=== PATIENT | male | born 1935 | race Caucasian/White ===

== ENCOUNTER 2017-01-27 08:32 | Observation (INO) | payer MEDICARE, BC ==
[2017-01-27] MEDS ORDERED: NORMAL SALINE 1,000 ML IV ONE (09:43)
[2017-01-27 09:52] LABS: Urine Bilirubin Negative (NEGATIVE); Urine Blood 250 /ul (NEGATIVE); Urine Ketone Negative (NEGATIVE); Urine Nitrite Negative (NEGATIVE); Urine Protein Negative (NEGATIVE); Urine Urobilinogen Normal (NORMAL); Urine pH 5.5 pH (5.0-7.0)
[2017-01-27 09:58] LABS: Hematocrit 38.4 % (42.0-52.0); Hemoglobin 13.4 gm/dL (13.5-18.0); Mean Cell Volume 97.2 fl (78-100); Mean Corpuscular Hemoglobin 33.9 pg (27-31); Mean Corpuscular Hgb Conc 34.9 g/dl (32-36); Mean Platelet Volume 9.6 fl (6.0-9.5); Neutrophil # 6.7 K/mm3 (1.3-6.0); Neutrophil % 71.4 % (42-75.0); Platelet Count 250 K/mm3 (150-450); Red Blood Count 3.95 M/mm3 (4.7-6.0); Red Cell Distribution Width 13.2 % (11.5-14.0); White Blood Count 9.4 K/mm3 (4.0-10.5)
[2017-01-27 10:00] LABS: Urine Appearance Clear; Urine Bacteria TRACE; Urine Color Yellow; Urine Sperm Few - 1+; Urine WBC TRACE /hpf (0-5)
[2017-01-27 10:07] LABS: Prothrombin Time (Patient) 25.6 Seconds (9.4-11.4)
[2017-01-27 10:08] LABS: INR 2.46 INR (0.90-1.10); Partial Thrombolplastin Time 41.5 Seconds (24-32)
[2017-01-27 10:20] LABS: Albumin * 3.4 gm/dl (3.4-5.0); Anion Gap 14.3 mmol/L (6.8-13.8); BUN/Creatinine Ratio 16.8 (9.0-21.6); Bilirubin, Total 1.4 mg/dL (0.0-1.1); Ca. Corrected For Albumin 10.6 mg/dL (8.4-10.2); Calcium * 10.4 mg/dL (7.9-10.9); Potassium 4.3 mmol/L (3.4-4.6); Total Protein 7.7 gm/dL (6.2-8.2)
[2017-01-27 10:21] LABS: Troponin I 0.065 ng/ml (0.00-0.10)
--- NOTE | 2017-01-27 10:21 | ERNOTE ---
Dizziness ER Record Date of Service: 01/27/17 Presenting Symptoms: near-fainting Time Seen by Provider: 01/27/17 09:07 Source: patient, family Exam Limitations: no limitations Immunizations: IMMUNIZATION HX Immunizations Up to Date Yes History of Influenza Vaccine Yes Hx Pneumococcal Vaccination Yes Allergies/Adverse Reactions: Allergies Allergy/AdvReac Type Severity Reaction Status Date / Time latex Allergy Verified 01/27/17 08:51 Sulfa (Sulfonamide Allergy Verified 01/27/17 08:51 Antibiotics) Home Medications: HOME MEDICATIONS Acetaminophen [Tylenol] 650 mg PO Q6H PRN 07/30/15 [Last Taken Unknown] Cholecalciferol (Vitamin D3) [Vitamin D3] 5,000 unit PO DAILY 07/30/15 [Last Taken Unknown] Menthol [Biofreeze] 1 appl TP PRN PRN 07/30/15 [Last Taken Unknown] Pravastatin Sodium [Pravachol] 20 mg PO HS 07/30/15 [Last Taken Unknown] Acetaminophen [Tylenol] 650 mg PO Q6H PRN #1 tablet 08/02/15 [Last Taken Unknown ] Metoprolol Succinate [Toprol Xl] 25 mg PO HS #100 tablet.sa 08/02/15 [Last Taken Unknown] Amox Tr/Potassium Clavulanate [Augmentin 875-125 Tablet] 875 mg PO Q12H [Last Taken Unknown] Furosemide [Lasix] 40 mg PO DAILY 01/27/17 [Last Taken Unknown] Gabapentin 300 mg PO DAILY 01/27/17 [Last Taken Unknown] Lisinopril 5 mg PO DAILY 01/27/17 [Last Taken Unknown] Warfarin Sodium [Coumadin] 1 mg PO DAILY 01/27/17 [Last Taken Unknown] - History of Present Illness Narrative: This morning, has been having episodes of near syncope when upright at home. Over the recent past, had an increase in Lasix, for possible flare in fluid overload. Recently, that has been lowered again back down to 40 mg. Also, pulmonology has stopped has amiodarone, out of concern for lung side effects, and started amoxicillen for possible lung infection. This has resulted in elevated INR and need for adjustment of coumadin. Timing and Duration: still present - significant orthostatic drop here in the ER , with attendant rise in pulse Noted on awakening:: Yes Severity: max: moderate Severity: currently: moderate Associated Symptoms: Present: light headedness Sense of movement: Present: none Fainted/near fainted while:: Present: standing Decreased ability to stand/walk:: Present: difficult Usually:: Present: walks w/o assistance Modifying Factors - (Improves): Reports: other - lieing down Modifying Factors - (Worsens): Reports: standing position Prior Treament: Reports: recently seen, treated by physician, currently on antibiotics Review of Systems - Review of Systems Constitutional: Present: See HPI EYE: Present: no symptoms reported ENT: Present: no symptoms reported Respiratory: Present: other - hurts to take deep breaths. Cardiology: Present: See HPI Gastrointestinal/Abdominal: Present: no symptoms reported Genitourinary: Present: no symptoms reported Musculoskeletal: Present: no symptoms reported Skin: Present: no symptoms reported Neurological: Present: no symptoms reported Endocrine: Present: no symptoms reported Hematologic/Lymphatic: Present: no symptoms reported Psych: Present: no symptoms reported All Other Systems: All systems neg except as marked - Patient's Past Medical History Patient History - Medical: No pertinent hx Patient History - Cardiac/Respiratory: Atrial Fibrillation, Hypertension, Hyperlipidemia, TIA Patient History - Cancer: No Hx of Cancer Patient History - Surgical Procedures: Other Patient History - Other: None - Family History Father Family History - Medical: Family History - Cardiac/Respiratory: Myocardial Infarction Mother Family History - Medical: - Social History Living Situations: home Psych History: No pertinent hx Smoking Status: Never smoker Alcohol Use: occasionally Drug Use: none - Immunizations Immunizations Up to Date: Yes Hx Pneumococcal Vaccination: Yes History of Influenza Vaccine: Yes Physical Exam - Physical Exam General Appearance: Present: wd/wn, alert, no apparent distress Head Exam: Present: normal inspection, no evidence of injury Eye Exam: Normal inspection: bilateral, PERRL: bilateral, EOMI: bilateral Ears, Nose, Throat: Present: normal ENT inspection Neck: Present: normal inspection, nontender Respiratory: Present: no respiratory distress, normal breath sounds Cardiovascular/Chest: Present: regular rate, rhythm, no murmur Gastrointestinal/Abdominal: Present: normal bowel sounds, nontender, nondistended, soft, no organomegaly Back Exam: Present: normal inspection Extremity Exam: Present: normal inspection, no edema Neurological Exam: Present: alert, oriented, normal mood/affect, no motor/ sensory deficits Skin Exam: Present: normal color, warm/dry Lymphatic Exam: Present: no adenopathy ED Progress - Results and Orders Patient's Lab Results:: I have reviewed the patient's lab results. - Vital Signs Patient's Vital Signs:: I have reviewed the patient's vital signs. Vital Signs: Vital Signs 01/27/17 01/27/17 08:36 09:12 Temperature 36.5 C Pulse Rate 68 104 H Respiratory 16 Rate Blood Pressure 142/59 O2 Sat by Pulse 95 Oximetry - EKG EKG: NSR EKG read: Interp. by me - first degree AV block, old mi, non specific t wave abnormality. - Progress/Reassessment Chief Complaint: Dizziness Progress:: Improved Progress Note-Subjective: 01/27/17 14:40 The patient has improved, but is still light headed and anxious when up. Orthostatics are also improved. I've spoken with Dr. Marie who agrees to accept him as an observation med surg admission. Departure Clinical Impression: Atrial fibrillation with RVR, Orthostatic hypotension - Departure Disposition: [facility]
[2017-01-27] MEDS ORDERED: NORMAL SALINE 500 ML IV ONE (12:45)
[2017-01-27] MEDS ORDERED: (Menthol [Biofreeze] 1 APPL) TP PRN (14:43)
[2017-01-27] MEDS ORDERED: ACETAMINOPHEN 325 MG TABLET PO PRN (14:43)
[2017-01-27] MEDS ORDERED: AMOX TR/POTASSIUM CLAVULANATE 875 MG TABLET PO SCH (14:45)
--- NOTE | 2017-01-27 15:06 | HP ---
Chief Complaint - Chief Complaint Date of Service: 01/27/17 Time of Service: 14:52 Chief Complaint: Near Syncope History of Present Illness: This 81 year old man normally sees Dr. Hall. Today, he has been having episodes of near syncope when upright at home. Over the recent past, he had an increase in Lasix, for a possible flare in fluid overload. Also recently, the lasix subsequently has been lowered again back down to 40 mg, because apparently fluid overload was not actually the issue. Also, pulmonology has stopped has amiodarone, out of concern for lung side effects, and started amoxicillen for possible lung infection. This has resulted in elevated INR and need for adjustment of coumadin. We have now given him several gentle IV fluid boluses and he feels better, his orthostatic changes have improved, but he is still light headed and remains concerned. For this reason, we have decided to admit him overnight for additional IV fluids and monitoring. - Patient's Past Medical History Patient History - Medical: No pertinent hx Patient History - Cardiac/Respiratory: Atrial Fibrillation, Hypertension, Hyperlipidemia, TIA Patient History - Cancer: No Hx of Cancer Patient History - Surgical Procedures: Other Patient History - Other: None - Family History Father Family History - Medical: Family History - Cardiac/Respiratory: Myocardial Infarction Mother Family History - Medical: - Social History Living Situations: home Psych History: No pertinent hx Smoking Status: Never smoker Alcohol Use: occasionally Drug Use: none - Immunizations Immunizations Up to Date: Yes Hx Pneumococcal Vaccination: Yes History of Influenza Vaccine: Yes Review Of Systems (GEN) - Review of Systems Generalized/Overall Review: Present: Weakness, Malaise EENTM: Present: No Symptoms Reported Respiratory: Present: No Symptoms Reported Cardiac: Present: Chest Pain - with deep breathing Abdominal: Present: No Symptoms Reported Genitourinary: Present: No Symptoms Reported Musculoskeletal: Present: No Symptoms Reported Neurological: Present: Anxiety, Weakness Skin: Present: No Symptoms Reported Endocrine: Present: No Symptoms Reported Misc: All systems neg except as marked Immunizations: IMMUNIZATION HX Immunizations Up to Date Yes History of Influenza Vaccine Yes Hx Pneumococcal Vaccination Yes Allergies/Adverse Reactions: Allergies Allergy/AdvReac Type Severity Reaction Status Date / Time latex Allergy Verified 01/27/17 08:51 Sulfa (Sulfonamide Allergy Verified 01/27/17 08:51 Antibiotics) Home Medications: HOME MEDICATIONS Acetaminophen [Tylenol] 650 mg PO Q6H PRN 07/30/15 [Last Taken Unknown] Cholecalciferol (Vitamin D3) [Vitamin D3] 5,000 unit PO DAILY 07/30/15 [Last Taken Unknown] Menthol [Biofreeze] 1 appl TP PRN PRN 07/30/15 [Last Taken Unknown] Pravastatin Sodium [Pravachol] 20 mg PO HS 07/30/15 [Last Taken Unknown] Acetaminophen [Tylenol] 650 mg PO Q6H PRN #1 tablet 08/02/15 [Last Taken Unknown ] Metoprolol Succinate [Toprol Xl] 25 mg PO HS #100 tablet.sa 08/02/15 [Last Taken Unknown] Amox Tr/Potassium Clavulanate [Augmentin 875-125 Tablet] 875 mg PO Q12H [Last Taken Unknown] Furosemide [Lasix] 40 mg PO DAILY 01/27/17 [Last Taken Unknown] Gabapentin 300 mg PO DAILY 01/27/17 [Last Taken Unknown] Lisinopril 5 mg PO DAILY 01/27/17 [Last Taken Unknown] Warfarin Sodium [Coumadin] 1 mg PO DAILY 01/27/17 [Last Taken Unknown] Exam - Exam Vital Signs: Vital Signs - Last Taken Temp 36.5 C 01/27/17 08:36 Pulse 76 01/27/17 14:16 Resp 17 01/27/17 14:16 BP 116/53 01/27/17 14:16 Pulse Ox 95 01/27/17 14:16 Constitutional: Present: Alert, Oriented x3, Cooperative, Well developed, Well nourished, No distress, Elderly ENT Exam: Present: normal ENT inspection, hearing grossly normal, pharynx normal Eye Exam: bilateral eye: normal inspection, PERRL, EOMI Neck: Present: normal inspection Back Exam: Present: normal inspection Respiratory: Present: lungs clear, no respiratory distress Cardiovascular/Chest: Present: no chest tenderness, no edema, no murmur, irregularly irregular. Absent: JVD Abdomen: Present: Normal bowel sounds, soft, nontender, nondistended, no rebound tenderness, no hepatospenomegaly Extremity: Present: normal inspection, no pedal edema Skin Exam: Present: normal color, warm/dry, no cyanosis Neurologic: Present: alert, oriented x 3 Appearance: Present: appropriate appearance, appropriate insight, neat, no memory impairment Eye contact: Present: cooperative, good eye contact, normal speech Thoughts: Present: normal thought pattern Diagnostic Studies: Laboratory Results WBC 9.4 K/mm3 (4.0-10.5) 01/27/17 09:50 RBC 3.95 M/mm3 (4.7-6.0) L 01/27/17 09:50 Hgb 13.4 gm/dL (13.5-18.0) L 01/27/17 09:50 Hct 38.4 % (42.0-52.0) L 01/27/17 09:50 MCV 97.2 fl (78-100) 01/27/17 09:50 MCH 33.9 pg (27-31) H 01/27/17 09:50 MCHC 34.9 g/dl (32-36) 01/27/17 09:50 RDW 13.2 % (11.5-14.0) 01/27/17 09:50 Plt Count 250 K/mm3 (150-450) 01/27/17 09:50 MPV 9.6 fl (6.0-9.5) H 01/27/17 09:50 Immature Gran % (Auto) 0.80 % (0.001-0.429) H 01/27/17 09:50 Immature Gran # (Auto) 0.08 K/mm3 (0.000-0.0310) H 01/27/17 09:50 Neutrophils % 71.4 % (42-75.0) 01/27/17 09:50 Lymphocytes % 14.1 % (20-51) L 01/27/17 09:50 Monocytes % 9.3 % (0.0-9) H 01/27/17 09:50 Eosinophils % 3.1 % (0.0-3.0) H 01/27/17 09:50 Basophils % 1.3 % (0.0-1.0) H 01/27/17 09:50 Nucleated RBC % 0.0 k/mm3 (0-1) 01/27/17 09:50 Neutrophils # 6.7 K/mm3 (1.3-6.0) H 01/27/17 09:50 Lymphocytes # 1.3 k/mm3 (1.5-3.5) L 01/27/17 09:50 Monocytes # 0.9 k/mm3 (0.0-1.0) 01/27/17 09:50 Eosinophils # 0.3 k/mm3 (0.0-0.7) 01/27/17 09:50 Absolute Basophils 0.1 k/mm3 (0.0-0.1) 01/27/17 09:50 PT 25.6 Seconds (9.4-11.4) H 01/27/17 09:50 INR (Anticoag Therapy) 2.46 INR (0.90-1.10) H 01/27/17 09:50 PTT ([place]) 41.5 Seconds (24-32) H 01/27/17 09:50 Sodium 134 mmol/L (132-142) 01/27/17 09:50 Plasma Sodium 134 mmol/L (130-142) 01/27/17 09:50 Potassium 4.3 mmol/L (3.4-4.6) 01/27/17 09:50 Chloride 98 mmol/L (97-106) 01/27/17 09:50 Carbon Dioxide 26.0 mmol/L (24-32.6) 01/27/17 09:50 Anion Gap 14.3 mmol/L (6.8-13.8) H 01/27/17 09:50 BUN 18 mg/dL (6-23) 01/27/17 09:50 Creatinine 1.07 mg/dL (0.4-1.4) 01/27/17 09:50 Est GFR (Non-Af Amer) 70 mL/min (60-130) D 01/27/17 09:50 BUN/Creatinine Ratio 16.8 (9.0-21.6) 01/27/17 09:50 Random Glucose 107 mg/dL (70-110) 01/27/17 09:50 Calcium 10.4 mg/dL (7.9-10.9) 01/27/17 09:50 Calcium Adj for Albumin 10.6 mg/dL (8.4-10.2) H 01/27/17 09:50 Total Bilirubin 1.4 mg/dL (0.0-1.1) H 01/27/17 09:50 AST 35 U/L (0-48) 01/27/17 09:50 ALT 41 U/L (19-67) 01/27/17 09:50 Alkaline Phosphatase 67 U/L (50-170) 01/27/17 09:50 Troponin I 0.065 ng/ml (0.00-0.10) 01/27/17 09:50 B-Natriuretic Peptide 1775 pg/mL (5-650) H 01/27/17 09:50 Total Protein 7.7 gm/dL (6.2-8.2) 01/27/17 09:50 Albumin 3.4 gm/dl (3.4-5.0) 01/27/17 09:50 Urine Color Yellow 01/27/17 09:43 Urine Appearance Clear 01/27/17 09:43 Urine pH 5.5 pH (5.0-7.0) 01/27/17 09:43 Ur Specific [place] 1.010 SP.GR. (1.005-1.030) 01/27/17 09:43 Urine Protein Negative mg/dL (NEGATIVE) 01/27/17 09:43 Urine Glucose (UA) Negative mg/dL (NEGATIVE) 01/27/17 09:43 Urine Ketones Negative mg/dL (NEGATIVE) 01/27/17 09:43 Urine Blood 250 /ul (NEGATIVE) H 01/27/17 09:43 Urine Nitrate Negative (NEGATIVE) 01/27/17 09:43 Urine Bilirubin Negative mg/dl (NEGATIVE) 01/27/17 09:43 Urine Urobilinogen Normal EU/dl (NORMAL) 01/27/17 09:43 Ur Leukocyte Esterase Negative /ul (NEGATIVE) 01/27/17 09:43 Urine RBC 10-25 /hpf (0-5) H 01/27/17 09:43 Urine WBC Trace /hpf (0-5) 01/27/17 09:43 Ur Epithelial Cells Trace /hpf (0-5) 01/27/17 09:43 Urine Bacteria Trace (NONE) 01/27/17 09:43 Urine Sperm Few - 1+ (NONE) H 01/27/17 09:43 Urine Culture Comments No culture indicated 01/27/17 09:43 Assessment/Plan - Narrative Narrative: Continued rehydration. Hold Lasix. Ambulation with help. Labs in AM. Probably home tomorrow. - Assessment/Plan (1) Orthostatic hypotension Problem: Acute (2) Cardiomyopathy, nonischemic Problem: Chronic (3) Hypertension Problem: Chronic Qualifiers: Hypertension type: essential hypertension Qualified Code(s): I10 - Essential (primary) hypertension (4) Hypolipidemia Problem: Chronic
[2017-01-27] MEDS: POTASSIUM CHLORIDE 20 MEQ in NORMAL SALINE 1,000 ML IV SCH (16:28)
[2017-01-27] MEDS ORDERED: METOPROLOL SUCCINATE 25 MG TABLET.SA PO SCH (21:00)
[2017-01-27] MEDS: SIMVASTATIN 10 MG TABLET PO SCH (21:15)
[2017-01-27] MEDS: AMOX TR/POTASSIUM CLAVULANATE 875 MG TABLET PO SCH (21:15)
[2017-01-27] MEDS: GABAPENTIN 300 MG CAPSULE PO SCH (21:35)
[2017-01-27] MEDS: LORATADINE 10 MG TABLET PO SCH (21:35)
[2017-01-28] MEDS: LISINOPRIL 5 MG TABLET PO SCH ×2 (06:04→09:03)
[2017-01-28 06:18] LABS: Hemoglobin 11.9 gm/dL (13.5-18.0); Mean Cell Volume 102.3 fl (78-100); Mean Corpuscular Hemoglobin 33.8 pg (27-31); Mean Corpuscular Hgb Conc 33.1 g/dl (32-36); Neutrophil # 4.7 K/mm3 (1.3-6.0); Neutrophil % 67.7 % (42-75.0); Platelet Count 199 K/mm3 (150-450); Red Blood Count 3.52 M/mm3 (4.7-6.0); Red Cell Distribution Width 13.5 % (11.5-14.0); White Blood Count 6.9 K/mm3 (4.0-10.5)
[2017-01-28 06:22] LABS: BUN/Creatinine Ratio 15.5 (9.0-21.6); Calcium * 9.5 mg/dL (7.9-10.9); Carbon Dioxide 27.5 mmol/L (24-32.6); Estimated Creat Clear 60.6; Potassium 4.5 mmol/L (3.4-4.6)
[2017-01-28 06:24] LABS: INR 2.02 INR (0.90-1.10)
[2017-01-28] MEDS: AMOX TR/POTASSIUM CLAVULANATE 875 MG TABLET PO SCH ×2 (08:56→20:59)
[2017-01-28] MEDS: CHOLECALCIFEROL 5,000 UNIT TABLET PO SCH (08:56)
[2017-01-28] MEDS ORDERED: LISINOPRIL 5 MG TABLET PO SCH (09:00)
[2017-01-28] MEDS ORDERED: GABAPENTIN 300 MG CAPSULE PO SCH (09:00)
[2017-01-28] MEDS ORDERED: GABAPENTIN 100 MG CAPSULE PO SCH (09:00)
--- NOTE | 2017-01-28 09:23 | PN ---
Subjective - Date and Time Seen Date: 01/28/17 Time: 09:20 Subjective Narrative: Still light headed in spite of our adjustments. Wonders about labs. Concerned that we have adjusted his meds. Better than yesterday. Ok when sitting. Objective - Review of Systems Generalized/Overall Review: Reports: No Symptoms Reported EENTM: Reports: No Symptoms Reported Respiratory: Reports: No Symptoms Reported Cardiac: Reports: Other - HPI Abdominal: Reports: No Symptoms Reported Genitourinary Symptoms: Reports: No Symptoms Reported Musculoskeletal Complaints: Reports: No Symptoms Reported Neurological: Reports: No Symptoms Reported Skin: Reports: No Symptoms Reported Endocrine: Reports: No Symptoms Reported Misc: All systems neg except as marked - Vitals Vitals: Last Vital Signs Temp 36.3 C L 01/28/17 06:37 Pulse 72 01/28/17 09:03 Resp 18 01/28/17 06:37 BP 104/47 01/28/17 09:03 Pulse Ox 92 01/28/17 06:37 - Abnormal Lab Findings Abnormal Lab Findings: Abnormal Lab Results 01/28/17 01/28/17 Range/Units 06:00 06:00 RBC 3.52 L (4.7-6.0) M/mm3 Hgb 11.9 L (13.5-18.0) gm/dL Hct 36.0 L (42.0-52.0) % MCV 102.3 H (78-100) fl MCH 33.8 H (27-31) pg MPV 10.0 H (6.0-9.5) fl Immature Gran % (Auto) 0.90 H (0.001-0.429) % Immature Gran # (Auto) 0.06 H (0.000-0.0310) K/mm3 Lymphocytes % 14.2 L (20-51) % Monocytes % 10.3 H (0.0-9) % Eosinophils % 5.7 H (0.0-3.0) % Basophils % 1.2 H (0.0-1.0) % Lymphocytes # 1.0 L (1.5-3.5) k/mm3 PT 21.0 H (9.4-11.4) Seconds INR (Anticoag Therapy) 2.02 H (0.90-1.10) INR - Exam Constitutional: Present: Alert, Oriented x3, Cooperative, Well developed, Well nourished, No distress ENT Exam: Present: normal ENT inspection, hearing grossly normal Neck: Present: normal inspection Respiratory: Present: normal breath sounds, no respiratory distress Cardiovascular/Chest: Present: regular rate, rhythm, no chest tenderness Abdomen: Present: Normal bowel sounds, soft, nontender, nondistended, no rebound tenderness, no hepatospenomegaly, no masses Extremity: Present: normal inspection, no pedal edema Skin Exam: Present: normal color, warm/dry, no cyanosis Neurologic: Present: alert, oriented x 3, other - anxious Appearance: Present: appropriate appearance, no memory impairment, impaired insight - ? Thoughts: Present: normal thought pattern Assessment/Plan Plan Narrative: Adjust meds. Ambulate lots. Labs tomorrow. Home tomorrow. - Problems/Diagnosis (1) Orthostatic hypotension Problem: Acute (2) Cardiomyopathy, nonischemic Problem: Chronic (3) Hypertension Problem: Chronic Qualifiers: Hypertension type: essential hypertension Qualified Code(s): I10 - Essential (primary) hypertension (4) Hypolipidemia Problem: Chronic
[2017-01-28] MEDS: POTASSIUM CHLORIDE 20 MEQ in NORMAL SALINE 1,000 ML IV SCH (11:57)
[2017-01-28] MEDS ORDERED: WARFARIN SODIUM 1 MG TABLET PO SCH (17:00)
[2017-01-28] MEDS ORDERED: WARFARIN SODIUM 2 MG TABLET PO SCH (17:00)
[2017-01-28] MEDS: LORazepam 0.5 MG TABLET PO SCH ×2 (17:26→20:59)
[2017-01-28] MEDS: GABAPENTIN 300 MG CAPSULE PO SCH (20:59)
[2017-01-28] MEDS: SIMVASTATIN 10 MG TABLET PO SCH (20:59)
[2017-01-28] MEDS: LORATADINE 10 MG TABLET PO SCH (20:59)
[2017-01-28] MEDS ORDERED: METOPROLOL SUCCINATE 25 MG TABLET.SA PO SCH (21:00)
[2017-01-29 05:28] LABS: Hematocrit 34.5 % (42.0-52.0); Hemoglobin 11.5 gm/dL (13.5-18.0); Mean Cell Volume 99.7 fl (78-100); Mean Corpuscular Hemoglobin 33.2 pg (27-31); Mean Corpuscular Hgb Conc 33.3 g/dl (32-36); Mean Platelet Volume 10.3 fl (6.0-9.5); Neutrophil # 5.1 K/mm3 (1.3-6.0); Neutrophil % 67.4 % (42-75.0); Platelet Count 215 K/mm3 (150-450); Red Blood Count 3.46 M/mm3 (4.7-6.0); Red Cell Distribution Width 13.6 % (11.5-14.0); White Blood Count 7.6 K/mm3 (4.0-10.5)
[2017-01-29 05:37] LABS: Anion Gap 9.7 mmol/L (6.8-13.8); BUN/Creatinine Ratio 11.5 (9.0-21.6); Calcium * 9.3 mg/dL (7.9-10.9); Carbon Dioxide 27.5 mmol/L (24-32.6); Estimated Creat Clear 61.3; Potassium 4.2 mmol/L (3.4-4.6)
[2017-01-29 05:53] LABS: Prothrombin Time (Patient) 17.2 Seconds (9.4-11.4)
[2017-01-29 06:08] LABS: INR 1.65 INR (0.90-1.10)
[2017-01-29 07:02] VITALS: BP 109/56
[2017-01-29] MEDS: LORazepam 0.5 MG TABLET PO SCH (08:38)
[2017-01-29] MEDS: CHOLECALCIFEROL 5,000 UNIT TABLET PO SCH (08:38)
[2017-01-29] MEDS: AMOX TR/POTASSIUM CLAVULANATE 875 MG TABLET PO SCH (08:38)
[2017-01-29] MEDS ORDERED: GABAPENTIN 100 MG CAPSULE PO SCH (09:00)
--- NOTE | 2017-01-30 11:48 | DS ---
(1) Orthostatic hypotension Problem: Acute (2) Cardiomyopathy, nonischemic Problem: Chronic (3) Hypertension Problem: Chronic Qualifiers: Hypertension type: essential hypertension Qualified Code(s): I10 - Essential (primary) hypertension (4) Hypolipidemia Problem: Chronic Description of Stay: Gradually improved with rehydration and medication adjustment. Coumadin also adjusted. Procedures Performed: none Discharge Disposition: Home self care Disposition: Home self-care Condition: Good Discharge Activity: Activity as tolerated Discharge Diet: Low salt Referrals: Ayde Hall MD [Primary Care Provider] - Problem Oriented Discharge Instructions to Patient/Family: Near-Syncope, Easy- to-Read Additional Patient Instructions (free text): Please fax records from this hospital stay to Dr Warner (cardiology) and Dr Hooker (Pulmonology) at discharge. Followup with Dr. Hall this week. 02/02 at 2:45 Extra protime (INR) on Sunday. You may drive. You may mow the lawn when it is cool. You may walk 5 minutes daily when it is cool or walk on your treadmill 5 minutes daily, but take it easy, and rest, if you need to. Prescriptions (Any new or edited meds): Lisinopril 0.5 tab PO DAILY #15 tablet Warfarin Sodium [Coumadin] 3 mg PO DAILY #30 tablet Complete Home Medications List: Complete Home Medication List: Acetaminophen [Tylenol] 650 mg PO Q6H PRN 07/30/15 Cholecalciferol (Vitamin D3) [Vitamin D3] 5,000 unit PO DAILY@1200 07/30/15 Menthol [Biofreeze] 1 appl TP PRN PRN 07/30/15 Pravastatin Sodium [Pravachol] 20 mg PO HS 07/30/15 Amox Tr/Potassium Clavulanate [Augmentin 875-125 Tablet] 875 mg PO Q12H Furosemide [Lasix] 40 mg PO DAILY@1200 01/27/17 Gabapentin 100 mg PO QAM 01/27/17 Gabapentin 300 mg PO HS 01/27/17 Metoprolol Succinate [Toprol Xl] 12.5 mg PO HS 01/27/17 Acetaminophen [Tylenol] 650 mg PO QID PRN #0 tablet 01/29/17 Cetirizine HCl [Zyrtec] 10 mg PO HS 01/29/17 Lisinopril 0.5 tab PO DAILY #15 tablet 01/29/17 Loratadine [Claritin] 10 mg PO DAILY@2100 tablet 01/29/17 Warfarin Sodium [Coumadin] 2 mg PO DAILY@1700 01/29/17 Warfarin Sodium [Coumadin] 3 mg PO DAILY #30 tablet 01/29/17
== END 2017-01-29 12:00 | disposition home or self-care (01) ==
LOC: ER 08:32 → MS 14:35
PROVIDERS: ADMIT Family Medicine; ATTEND Family Medicine
DX: I95.1 Orthostatic hypotension (principal); I48.2 Chronic atrial fibrillation; E78.6 Lipoprotein deficiency; I10 Essential (primary) hypertension; Z79.01 Long term (current) use of anticoagulants
CPT/HCPCS: 36415; 80048; 80053; 81001; 83880; 84484; 85025; 85610; 85730; 93005; 99285; G0378

== ENCOUNTER 2018-03-23 18:19 | Observation (INO) | payer BC, MEDICARE ==
[2018-03-23] MEDS ORDERED: NORMAL SALINE 1,000 ML IV ONE (18:31)
[2018-03-23] MEDS ORDERED: ACETAMINOPHEN 500 MG TABLET PO ONE (18:36)
[2018-03-23 18:58] LABS: Hematocrit 40.1 % (42.0-52.0); Hemoglobin 13.3 gm/dL (13.5-18.0); Mean Cell Volume 108.7 fl (78-100); Mean Corpuscular Hgb Conc 33.2 g/dl (32-36); Mean Platelet Volume 10.3 fl (8-11.3); Neutrophil # 13.1 K/mm3 (1.3-6.0); Neutrophil % 86.7 % (42-75.0); Platelet Count 135 K/mm3 (150-450); Red Blood Count 3.69 M/mm3 (4.7-6.0); Red Cell Distribution Width 15.6 % (11.5-14.0); White Blood Count 15.2 K/mm3 (4.0-10.5)
--- NOTE | 2018-03-23 19:18 | ERNOTE ---
Neuro HPI ER Record Date of Service: 03/23/18 Presenting Symptoms: weakness Time Seen by Provider: 03/23/18 18:27 Source: patient, family Exam Limitations: dementia Immunizations: IMMUNIZATION HX Immunizations Up to Date Yes History of Influenza Vaccine Yes Hx Pneumococcal Vaccination No Allergies/Adverse Reactions: Allergies Allergy/AdvReac Type Severity Reaction Status Date / Time Sulfa (Sulfonamide Allergy Intermediate rash Verified 03/23/18 18:25 Antibiotics) latex Allergy Mild rash Verified 03/23/18 18:25 Penicillins AdvReac Intermediate Skin Verified 03/23/18 18:25 rashes/Hives levofloxacin [From Levaquin] AdvReac Unknown Verified 03/23/18 18:25 Home Medications: HOME MEDICATIONS Cholecalciferol (Vitamin D3) [Vitamin D3] 5,000 unit PO DAILY@1200 07/30/15 [ Last Taken 03/23/18] Gabapentin 100 mg PO QAM 01/27/17 [Last Taken 03/23/18] Gabapentin 300 mg PO HS 01/27/17 [Last Taken 03/22/18] Cetirizine HCl [Zyrtec] 10 mg PO HS 01/29/17 [Last Taken 03/22/18] Bisoprolol Fumarate 10 mg PO DAILY 07/11/17 [Last Taken 03/23/18] Sacubitril/Valsartan [Entresto 24 mg-26 mg Tablet] 1 ea PO BID 07/12/17 [Last Taken 03/23/18] furosemide 40 mg tablet 40 mg PO DAILY tab 03/01/18 [Last Taken 03/23/18] warfarin 1 mg tablet 2 mg PO SUTUWETHSA 03/01/18 [Last Taken 03/21/18] warfarin 3 mg tablet 3 mg PO MOFR tab 03/01/18 [Last Taken 03/22/18] pravastatin 20 mg tablet 20 mg PO HS #30 tab 03/13/18 [Last Taken 03/22/18] Cholecalciferol (Vitamin D3) [Vitamin D3] 5,000 unit PO DAILY 03/23/18 [Last Taken 03/23/18] - History of Present Illness Narrative: [facility] this [facility] and became confused,noted on arrival to have fever Onset: sudden onset, cannot confirm onset Severity: moderate - Character of Deficits New weakness: Present: general (diffuse) Additional Deficits: Present: decrease ability to stand, decrease ability to walk, off balance Baseline Cognition: Present: alert but disoriented to time Baseline Gait: Present: walks w/o assistance Associated Symptoms: Reports: fever/chills, altered mental status, disoriented, trouble concentrating Review of Systems - Narrative Narrative: patient family report patient to have alterred mental status - Review of Systems Constitutional: Present: See HPI, weakness, fatigue, malaise EYE: Present: no symptoms reported ENT: Present: no symptoms reported Respiratory: Present: no symptoms reported Cardiology: Present: no symptoms reported Gastrointestinal/Abdominal: Present: no symptoms reported Genitourinary: Present: no symptoms reported Musculoskeletal: Present: no symptoms reported Skin: Present: no symptoms reported Neurological: Present: weakness Endocrine: Present: no symptoms reported Hematologic/Lymphatic: Present: no symptoms reported Psych: Present: no symptoms reported All Other Systems: All systems neg except as marked Medical History (Last Reviewed 03/23/18 @ 18:25 by Roxann Marley RN) Prostate enlargement (Acute) Onset Date: Unknown Prostate cancer (Acute) Onset Date: 08/2017 Mild cognitive impairment (Acute) Onset Date: Unknown Microscopic hematuria (Acute) Onset Date: Unknown ILD (interstitial lung disease) (Acute) Onset Date: Unknown Hyperlipidemia (Acute) Onset Date: Unknown Hearing loss (Acute) Onset Date: Unknown Elevated PSA (Acute) Onset Date: Unknown DVT (deep venous thrombosis) (Acute) Onset Date: Unknown CVA (cerebral vascular accident) (Acute) Onset Date: Unknown CAD (coronary artery disease) (Acute) Onset Date: Unknown CHF (congestive heart failure) (Acute) Onset Date: Unknown Atrial fibrillation (Acute) Onset Date: 2007 Cardiomyopathy (Acute) Onset Date: Unknown Atrial fibrillation with RVR (Acute) Onset Date: Unknown Cardiomyopathy, nonischemic (Chronic) Onset Date: Unknown Hypotension (Acute) Onset Date: Unknown Hypertension (Chronic) Onset Date: ~1999 Hypolipidemia (Chronic) Onset Date: Unknown Headache around the eyes (Acute) Onset Date: Unknown Orthostatic hypotension (Acute) Onset Date: Unknown Abrasion (Acute) Onset Date: Unknown Arthritis Onset Date: Unknown Dementia Onset Date: Unknown Surgical History: Surgical History (Last Reviewed 03/23/18 @ 18:25 by Roxann Marley RN) H/O abdominal surgery (Acute) Onset Date: 1968 Encounter for removal of skin lesion (Acute) Onset Date: 02/15/16 flexible cystoscopy in adult (Acute) Onset Date: Unknown Echocardiogram abnormal (Acute) Onset Date: 06/2015 Abnormal colonoscopy (Chronic) Onset Date: 07/25/07 History of bone marrow biopsy (Resolved) Onset Date: 06/2015 History of aortic valve replacement (Acute) Onset Date: 02/01/17 abdominal exploration for trauma (Acute) Onset Date: ~1968 H/O cardiac catheterization Onset Date: ~06/2015 History of appendectomy Onset Date: Unknown History of cholecystectomy Onset Date: Unknown History of tonsillectomy Onset Date: Unknown Hx of cataract surgery Onset Date: Unknown Family History: Family History (Last Reviewed 03/23/18 @ 22:49 by Jairo Watkins RN) Brother Pancreatic cancer Daughter Diabetes Father Myocardial infarction Mother MVA (motor vehicle accident) Sister Breast cancer Son H/O testicular cancer Social History: Preferred Language Vietnamese Do you have any nondenominational or No cultural preference? Smoking Status Never smoker Psych History No pertinent hx Alcohol Use none Drug Use none Physical Exam - Physical Exam General Appearance: Present: mild distress, lethargic Head Exam: Present: normal inspection, no evidence of injury Eye Exam: Normal inspection: bilateral, PERRL: bilateral, EOMI: bilateral Ears, Nose, Throat: Present: normal ENT inspection, normal pharynx Neck: Present: normal inspection, nontender Respiratory: Present: no respiratory distress, normal breath sounds, no accessory muscle use, chest nontender, lungs clear Cardiovascular/Chest: Present: irregularly irregular, systolic murmur Peripheral Pulses: N=norm/S=strong/W=weak/B=bound/A=absent: Carotid (R): Normal , Carotid (L): Normal, Radial (R): Normal, Radial (L): Normal Gastrointestinal/Abdominal: Present: normal bowel sounds, nontender, nondistended, soft, no organomegaly Back Exam: Present: normal inspection, normal range of motion, no CVA tenderness , no vertebral tenderness Extremity Exam: Present: normal inspection, non-tender, normal range of motion, no edema Neurological Exam: Present: alert, oriented, normal mood/affect, no motor/ sensory deficits, disoriented to person, disoriented to time Skin Exam: Present: normal color, warm/dry Lymphatic Exam: Present: no adenopathy Dodson Coma Scale - Assess Eye Opening: Spontaneous Motor: Obeys Commands Verbal: Confused - Total Coma Scale Total: 14 ED Progress - Date and Time Seen: Date and Time: 03/24/18 08:[address] Enriquez - Results and Orders Patient's Lab Results:: I have reviewed the patient's lab results. - Vital Signs Patient's Vital Signs:: I have reviewed the patient's vital signs. Vital Signs: Vital Signs 03/23/18 18:19 03/23/18 18:25 03/23/18 18:28 Temperature 38.2 C H Pulse Rate 88 107 H 101 H Respiratory Rate 25 H 23 H Blood Pressure 80/49 L O2 Sat by Pulse Oximetry 98 96 - EKG EKG: atrial fibrillation EKG read: Interp. by me - X-Ray X-Ray #1 X-Ray: chest Interpretation: Interp. by ga - no acute process - Progress/Reassessment Chief Complaint: Altered Mental Status Progress:: Improved - Transfer of Care Physician Sign Out: Gerald Gagnon Receiving Physician: Adan Enriquez Expected Disposition: Admit Plan - Plan Plan: to be admitted Departure Clinical Impression: Altered mental status - Departure Disposition: Still a patient Condition: Fair
[2018-03-23 19:20] LABS: Prothrombin Time (Patient) 19.2 Seconds (9.0-11.0)
[2018-03-23 19:21] LABS: Albumin * 3.4 gm/dl (3.4-5.0); Anion Gap 8.8 mmol/L (6.8-13.8); BUN/Creatinine Ratio 23.3 (9.0-21.6); Bilirubin, Total 2.4 mg/dL (0.0-1.1); CRP 1.7 mg/dL (0.0-0.9); Ca. Corrected For Albumin 8.8 mg/dL (8.4-10.2); Calcium * 8.6 mg/dL (7.9-10.9); Carbon Dioxide 30.6 mmol/L (24-32.6); INR 1.91 INR (0.90-1.10); Potassium 4.4 mmol/L (3.4-4.6); Total Protein 6.9 gm/dL (6.2-8.2)
[2018-03-23 20:21] LABS: Urine Appearance Clear (CLEAR); Urine Bilirubin Negative (NEGATIVE); Urine Blood 5 /ul (NEGATIVE); Urine Color Dark Yellow; Urine Ketone Negative (NEGATIVE); Urine Nitrite Negative (NEGATIVE); Urine Protein Negative (NEGATIVE); Urine Urobilinogen Normal (NORMAL)
[2018-03-23 20:22] LABS: Urine Bacteria None Seen; Urine RBC None Seen /hpf (0-5); Urine WBC 0-5 /hpf (0-5)
[2018-03-23] MEDS ORDERED: ACETAMINOPHEN 325 MG TABLET PO PRN (23:06)
[2018-03-24] MEDS ORDERED: BISOPROLOL FUMARATE 5 MG TABLET PO SCH (09:00)
[2018-03-24] MEDS ORDERED: GABAPENTIN 100 MG CAPSULE PO SCH (09:00)
[2018-03-24] MEDS ORDERED: FUROSEMIDE 40 MG TABLET PO SCH (09:00)
--- NOTE | 2018-03-24 09:14 | HP ---
Chief Complaint - Chief Complaint Date of Service: 03/24/18 Time of Service: 08:44 Chief Complaint: confusion, dizziness History of Present Illness: Patient with a PMHx of afib and Stage IV prostate cancer was admitted overnight for confusion and fever. Patient went to [facility] last night, but was feeling a little dizzy and "listless." He was brought to the ED and had a fever initially , which has resolved. He currently feels close to his baseline. Is no longer dizzy. Denies CP, SOB, dysuria, cough, vision changes. He was able to eat breakfast this morning, and is ambulating between his bed and his chair. Medical History (Last Reviewed 03/23/18 @ 18:25 by Roxann Marley RN) Prostate enlargement (Acute) Onset Date: Unknown Prostate cancer (Acute) Onset Date: 08/2017 Mild cognitive impairment (Acute) Onset Date: Unknown Microscopic hematuria (Acute) Onset Date: Unknown ILD (interstitial lung disease) (Acute) Onset Date: Unknown Hyperlipidemia (Acute) Onset Date: Unknown Hearing loss (Acute) Onset Date: Unknown Elevated PSA (Acute) Onset Date: Unknown DVT (deep venous thrombosis) (Acute) Onset Date: Unknown CVA (cerebral vascular accident) (Acute) Onset Date: Unknown CAD (coronary artery disease) (Acute) Onset Date: Unknown CHF (congestive heart failure) (Acute) Onset Date: Unknown Atrial fibrillation (Acute) Onset Date: 2007 Cardiomyopathy (Acute) Onset Date: Unknown Atrial fibrillation with RVR (Acute) Onset Date: Unknown Cardiomyopathy, nonischemic (Chronic) Onset Date: Unknown Hypotension (Acute) Onset Date: Unknown Hypertension (Chronic) Onset Date: ~1999 Hypolipidemia (Chronic) Onset Date: Unknown Headache around the eyes (Acute) Onset Date: Unknown Orthostatic hypotension (Acute) Onset Date: Unknown Abrasion (Acute) Onset Date: Unknown Arthritis Onset Date: Unknown Dementia Onset Date: Unknown Surgical History: Surgical History (Last Reviewed 03/23/18 @ 18:25 by Roxann Marley RN) H/O abdominal surgery (Acute) Onset Date: 1968 Encounter for removal of skin lesion (Acute) Onset Date: 02/15/16 flexible cystoscopy in adult (Acute) Onset Date: Unknown Echocardiogram abnormal (Acute) Onset Date: 06/2015 Abnormal colonoscopy (Chronic) Onset Date: 07/25/07 History of bone marrow biopsy (Resolved) Onset Date: 06/2015 History of aortic valve replacement (Acute) Onset Date: 02/01/17 abdominal exploration for trauma (Acute) Onset Date: ~1968 H/O cardiac catheterization Onset Date: ~06/2015 History of appendectomy Onset Date: Unknown History of cholecystectomy Onset Date: Unknown History of tonsillectomy Onset Date: Unknown Hx of cataract surgery Onset Date: Unknown Family History: Family History (Last Reviewed 03/23/18 @ 22:49 by Jairo Watkins RN) Brother Pancreatic cancer Daughter Diabetes Father Myocardial infarction Mother MVA (motor vehicle accident) Sister Breast cancer Son H/O testicular cancer Social History: Patient Lives/Resources Home Utilized Occupation Retired Preferred Language Liberian Do you have any episcopal or No cultural preference? Smoking Status Never smoker Have you smoked in the past 12 No months Do you dip or chew tobacco No Psych History No pertinent hx Alcohol Use none Drug Use none Review Of Systems (GEN) - Review of Systems Generalized/Overall Review: Present: Fever. Absent: Weakness, Fatigue EENTM: Absent: Blurred Vision Respiratory: Absent: Cough, Shortness of Breath, Wheezing Cardiac: Present: Edema. Absent: Chest Pain, Syncope Abdominal: Absent: Vomiting, Abdominal Pain Genitourinary: Absent: Dysuria Musculoskeletal: Present: Back Pain Immunizations: IMMUNIZATION HX Immunizations Up to Date Yes History of Influenza Vaccine Yes Hx Pneumococcal Vaccination No Allergies/Adverse Reactions: Allergies Allergy/AdvReac Type Severity Reaction Status Date / Time Sulfa (Sulfonamide Allergy Intermediate rash Verified 03/23/18 18:25 Antibiotics) latex Allergy Mild rash Verified 03/23/18 18:25 Penicillins AdvReac Intermediate Skin Verified 03/23/18 18:25 rashes/Hives levofloxacin [From Levaquin] AdvReac Unknown Verified 03/23/18 18:25 Home Medications: HOME MEDICATIONS Cholecalciferol (Vitamin D3) [Vitamin D3] 5,000 unit PO DAILY@1200 07/30/15 [ Last Taken 03/23/18] Gabapentin 100 mg PO QAM 01/27/17 [Last Taken 03/23/18] Gabapentin 300 mg PO HS 01/27/17 [Last Taken 03/22/18] Cetirizine HCl [Zyrtec] 10 mg PO HS 01/29/17 [Last Taken 03/22/18] Bisoprolol Fumarate 10 mg PO DAILY 07/11/17 [Last Taken 03/23/18] Sacubitril/Valsartan [Entresto 24 mg-26 mg Tablet] 1 ea PO BID 07/12/17 [Last Taken 03/23/18] furosemide 40 mg tablet 40 mg PO DAILY tab 03/01/18 [Last Taken 03/23/18] warfarin 1 mg tablet 2 mg PO SUTUWETHSA 03/01/18 [Last Taken 03/21/18] warfarin 3 mg tablet 3 mg PO MOFR tab 03/01/18 [Last Taken 03/22/18] pravastatin 20 mg tablet 20 mg PO HS #30 tab 03/13/18 [Last Taken 03/22/18] Cholecalciferol (Vitamin D3) [Vitamin D3] 5,000 unit PO DAILY 03/23/18 [Last Taken 03/23/18] Exam - Exam Vital Signs: Vital Signs - Last Taken Temp 36.3 C 03/24/18 07:00 Pulse 89 03/24/18 08:05 Resp 16 03/24/18 07:00 BP 105/74 03/24/18 08:05 Pulse Ox 95 03/24/18 07:00 Constitutional: Present: Alert, Oriented x3, Cooperative, Well developed, No distress ENT Exam: Present: hearing grossly normal Eye Exam: bilateral eye: EOMI Neck: Present: non-tender Respiratory: Present: lungs clear, normal breath sounds, no respiratory distress , no accessory muscle use Cardiovascular/Chest: Present: irregularly irregular. Absent: edema Abdomen: Present: soft, nontender Neurologic: Present: normal mood/affect, oriented x 3. Absent: no motor/ sensory deficits, abnormal cerebellar tests, motor weakness Appearance: Present: appropriate appearance Eye contact: Present: cooperative, good eye contact Diagnostic Studies: Abnormal Lab Results 03/23/18 03/23/18 03/23/18 Range/Units 18:35 18:35 18:35 WBC 15.2 H (4.0-10.5) K/mm3 RBC 3.69 L (4.7-6.0) M/mm3 Hgb 13.3 L (13.5-18.0) gm/dL Hct 40.1 L (42.0-52.0) % MCV 108.7 H (78-100) fl MCH 36.0 H (27-31) pg RDW 15.6 H (11.5-14.0) % Plt Count 135 L (150-450) K/mm3 Immature Gran % (Auto) 1.50 H (0.001-0.429) % Immature Gran # (Auto) 0.23 H (0.000-0.0310) K/mm3 Neutrophils % 86.7 H (42-75.0) % Lymphocytes % 5.0 L (20-51) % Neutrophils # 13.1 H (1.3-6.0) K/mm3 Lymphocytes # 0.76 L (1.5-3.5) k/mm3 PT 19.2 H (9.0-11.0) Seconds INR (Anticoag Therapy) 1.91 H (0.90-1.10) INR BUN 27 H (6-23) mg/dL BUN/Creatinine Ratio 23.3 H (9.0-21.6) Random Glucose 127 H (70-110) mg/dL Total Bilirubin 2.4 H (0.0-1.1) mg/dL C-Reactive Prot, Quant 1.7 H (0.0-0.9) mg/dL B-Natriuretic Peptide 3897 H (5-650) pg/mL Urine Blood (NEGATIVE) /ul 03/23/18 Range/Units 20:00 WBC (4.0-10.5) K/mm3 RBC (4.7-6.0) M/mm3 Hgb (13.5-18.0) gm/dL Hct (42.0-52.0) % MCV (78-100) fl MCH (27-31) pg RDW (11.5-14.0) % Plt Count (150-450) K/mm3 Immature Gran % (Auto) (0.001-0.429) % Immature Gran # (Auto) (0.000-0.0310) K/mm3 Neutrophils % (42-75.0) % Lymphocytes % (20-51) % Neutrophils # (1.3-6.0) K/mm3 Lymphocytes # (1.5-3.5) k/mm3 PT (9.0-11.0) Seconds INR (Anticoag Therapy) (0.90-1.10) INR BUN (6-23) mg/dL BUN/Creatinine Ratio (9.0-21.6) Random Glucose (70-110) mg/dL Total Bilirubin (0.0-1.1) mg/dL C-Reactive Prot, Quant (0.0-0.9) mg/dL B-Natriuretic Peptide (5-650) pg/mL Urine Blood 5 H (NEGATIVE) /ul Laboratory Results WBC 15.2 K/mm3 (4.0-10.5) H 03/23/18 18:35 RBC 3.69 M/mm3 (4.7-6.0) L 03/23/18 18:35 Hgb 13.3 gm/dL (13.5-18.0) L 03/23/18 18:35 Hct 40.1 % (42.0-52.0) L 03/23/18 18:35 MCV 108.7 fl (78-100) H 03/23/18 18:35 MCH 36.0 pg (27-31) H 03/23/18 18:35 MCHC 33.2 g/dl (32-36) 03/23/18 18:35 RDW 15.6 % (11.5-14.0) H 03/23/18 18:35 Plt Count 135 K/mm3 (150-450) L 03/23/18 18:35 MPV 10.3 fl (8-11.3) 03/23/18 18:35 Immature Gran % (Auto) 1.50 % (0.001-0.429) H 03/23/18 18:35 Immature Gran # (Auto) 0.23 K/mm3 (0.000-0.0310) H 03/23/18 18:35 Neutrophils % 86.7 % (42-75.0) H 03/23/18 18:35 Lymphocytes % 5.0 % (20-51) L 03/23/18 18:35 Monocytes % 6.1 % (0.0-9) 03/23/18 18:35 Eosinophils % 0.3 % (0.0-3.0) 03/23/18 18:35 Basophils % 0.4 % (0.0-1.0) 03/23/18 18:35 Nucleated RBC % 0.0 k/mm3 (0-1) 03/23/18 18:35 Neutrophils # 13.1 K/mm3 (1.3-6.0) H 03/23/18 18:35 Lymphocytes # 0.76 k/mm3 (1.5-3.5) L 03/23/18 18:35 Monocytes # 0.9 k/mm3 (0.0-1.0) 03/23/18 18:35 Eosinophils # 0.1 k/mm3 (0.0-0.7) 03/23/18 18:35 Absolute Basophils 0.1 k/mm3 (0.0-0.1) 03/23/18 18:35 PT 19.2 Seconds (9.0-11.0) H 03/23/18 18:35 INR (Anticoag Therapy) 1.91 INR (0.90-1.10) H 03/23/18 18:35 PTT (Nehal) 29.3 Seconds (24-32) 03/23/18 18:35 Sodium 138 mmol/L (132-142) 03/23/18 18:35 Plasma Sodium 138 mmol/L (130-142) 03/23/18 18:35 Potassium 4.4 mmol/L (3.4-4.6) 03/23/18 18:35 Chloride 103 mmol/L (97-106) 03/23/18 18:35 Carbon Dioxide 30.6 mmol/L (24-32.6) 03/23/18 18:35 Anion Gap 8.8 mmol/L (6.8-13.8) 03/23/18 18:35 BUN 27 mg/dL (6-23) H 03/23/18 18:35 Creatinine 1.16 mg/dL (0.4-1.4) 03/23/18 18:35 Est GFR (Non-Af Amer) 64 mL/min (60-130) 03/23/18 18:35 BUN/Creatinine Ratio 23.3 (9.0-21.6) H 03/23/18 18:35 Random Glucose 127 mg/dL (70-110) H 03/23/18 18:35 Lactic Acid, Venous 1.5 mmol/L (0.4-2.0) 03/23/18 18:35 Calcium 8.6 mg/dL (7.9-10.9) 03/23/18 18:35 Calcium Adj for Albumin 8.8 mg/dL (8.4-10.2) 03/23/18 18:35 Total Bilirubin 2.4 mg/dL (0.0-1.1) H 03/23/18 18:35 AST 29 U/L (0-48) 03/23/18 18:35 ALT 29 U/L (19-67) 03/23/18 18:35 Alkaline Phosphatase 79 U/L (50-170) 03/23/18 18:35 C-Reactive Prot, Quant 1.7 mg/dL (0.0-0.9) H 03/23/18 18:35 B-Natriuretic Peptide 3897 pg/mL (5-650) H 03/23/18 18:35 Total Protein 6.9 gm/dL (6.2-8.2) 03/23/18 18:35 Albumin 3.4 gm/dl (3.4-5.0) 03/23/18 18:35 Procalcitonin 0.15 ng/mL (0.05-0.50) 03/23/18 18:35 Urine Color Dark yellow 03/23/18 20:00 Urine Appearance Clear (CLEAR) 03/23/18 20:00 Urine pH 6.0 pH (5.0-7.0) 03/23/18 20:00 Ur Specific [place] 1.020 SP.GR. (1.005-1.030) 03/23/18 20:00 Urine Protein Negative mg/dL (NEGATIVE) 03/23/18 20:00 Urine Glucose (UA) Negative mg/dL (NEGATIVE) 03/23/18 20:00 Urine Ketones Negative mg/dL (NEGATIVE) 03/23/18 20:00 Urine Blood 5 /ul (NEGATIVE) H 03/23/18 20:00 Urine Nitrate Negative (NEGATIVE) 03/23/18 20:00 Urine Bilirubin Negative mg/dl (NEGATIVE) 03/23/18 20:00 Urine Urobilinogen Normal EU/dl (NORMAL) 03/23/18 20:00 Ur Leukocyte Esterase Negative /ul (NEGATIVE) 03/23/18 20:00 Urine RBC None seen /hpf (0-5) 03/23/18 20:00 Urine WBC 0-5 /hpf (0-5) 03/23/18 20:00 Ur Epithelial Cells 0-5 /hpf (0-5) 03/23/18 20:00 Urine Bacteria None seen (NONE) 03/23/18 20:00 Urine Culture Comments No culture indicated 03/23/18 20:00 Assessment/Plan - Narrative Narrative: Patient had acute onset confusion, which has resolved. Ddx includes TIA, infection, dysrhythmia. He was febrile on presentation to the ED, and received IV Rocephin. He is back to baseline, and will discharge home today. He already has a neurology appointment next week. Will discharge with 3 days of abx. Continue pravastatin. - Assessment/Plan (1) Confusion Problem: Resolved
--- NOTE | 2018-03-24 10:19 | DS ---
(1) Confusion Problem: Resolved (2) Fever Problem: Resolved Qualifiers: Fever type: unspecified Qualified Code(s): R50.9 - Fever, unspecified Description of Stay: Patient presented to the ED after feeling dizzy, and acute onset confusion. He had a temp up to 38.2 initially, which quickly resolved. WBC of 15.2. He was given one dose of Rocephin. He denies SOB, CP, cough, dysuria, skin changes, or signs of infection. The morning following admission, he felt like he was back to his baseline, and was able to ambulate to the bathroom. He had a prescheduled neurology visit the week after discharge. It was felt his confusion was most likely secondary to a TIA, but given his temp and elevated WBC, he was discharged with a short course of antibiotics. Procedures Performed: none Results and Findings: Lab Pending Results 03/23/18 18:35: WBC 15.2 H, RBC 3.69 L, Hgb 13.3 L, Hct 40.1 L, MCV 108.7 H, MCH 36.0 H, MCHC 33.2, RDW 15.6 H, Plt Count 135 L, MPV 10.3, Immature Gran % ( Auto) 1.50 H, Immature Gran # (Auto) 0.23 H, Neutrophils % 86.7 H, Lymphocytes % 5.0 L, Monocytes % 6.1, Eosinophils % 0.3, Basophils % 0.4, Nucleated RBC % 0.0, Neutrophils # 13.1 H, Lymphocytes # 0.76 L, Monocytes # 0.9, Eosinophils # 0.1, Absolute Basophils 0.1 03/23/18 18:35: Sodium 138, Plasma Sodium 138, Potassium 4.4, Chloride 103, Carbon Dioxide 30.6, Anion Gap 8.8, BUN 27 H, Creatinine 1.16, Est GFR (Non-Af Amer) 64, BUN/Creatinine Ratio 23.3 H, Random Glucose 127 H, Calcium 8.6, Calcium Adj for Albumin 8.8, Total Bilirubin 2.4 H, AST 29, ALT 29, Alkaline Phosphatase 79, C-Reactive Prot, Quant 1.7 H, B-Natriuretic Peptide 3897 H, Total Protein 6.9, Albumin 3.4 03/23/18 18:35: Lactic Acid, Venous 1.5 03/23/18 18:35: Procalcitonin 0.15 03/23/18 18:35: PT 19.2 H, INR (Anticoag Therapy) 1.91 H 03/23/18 18:35: PTT (Nehal) 29.3 03/23/18 20:00: Urine Color Dark yellow, Urine Appearance Clear, Urine pH 6.0, Ur Specific [place] 1.020, Urine Protein Negative, Urine Glucose (UA) Negative, Urine Ketones Negative, Urine Blood 5 H, Urine Nitrate Negative, Urine Bilirubin Negative, Urine Urobilinogen Normal, Ur Leukocyte Esterase Negative, Urine RBC None seen, Urine WBC 0-5, Ur Epithelial Cells 0-5, Urine Bacteria None seen, Urine Culture Comments No culture indicated Discharge Location: Home Disposition: Home self-care Condition: Fair Discharge Activity: Activity as tolerated Discharge Diet: General/regular food Referrals: Kay Baxter DO [Primary Care Provider] - Prescriptions (Any new or edited meds): Doxycycline Monohydrate 100 mg PO BID #10 tab Complete Home Medications List: Complete Home Medication List: Cholecalciferol (Vitamin D3) [Vitamin D3] 5,000 unit PO DAILY@1200 07/30/15 Gabapentin 100 mg PO QAM 01/27/17 Gabapentin 300 mg PO HS 01/27/17 Cetirizine HCl [Zyrtec] 10 mg PO HS 01/29/17 Bisoprolol Fumarate 10 mg PO DAILY 07/11/17 Sacubitril/Valsartan [Entresto 24 mg-26 mg Tablet] 1 ea PO BID 07/12/17 furosemide 40 mg tablet 40 mg PO DAILY tab 03/01/18 warfarin 1 mg tablet 2 mg PO SUTUWETHSA 03/01/18 warfarin 3 mg tablet 3 mg PO MOFR tab 03/01/18 pravastatin 20 mg tablet 20 mg PO HS #30 tab 03/13/18 Cholecalciferol (Vitamin D3) [Vitamin D3] 5,000 unit PO DAILY 03/23/18 Doxycycline Monohydrate 100 mg PO BID #10 tab 03/24/18
[2018-03-24 10:24] VITALS: BP 115/63
[2018-03-24] MEDS ORDERED: GABAPENTIN 300 MG CAPSULE PO SCH (21:00)
== END 2018-03-24 10:41 | disposition home or self-care (01) ==
LOC: ER 18:19 → MS 18:19
PROVIDERS: ADMIT Family Medicine; ATTEND Internal Medicine
CPT/HCPCS: 36415; 70450; 71020; 71046; 80053; 81001; 83519; 83605; 83880; 84145; 85025; 85610; 85730; 86140; 87040; 87077; 87186; 93005; 96361; 96365; 99284; G0378

== ENCOUNTER 2019-09-03 15:31 | Observation (INO) ==
[2019-09-03 16:52] LABS: Hematocrit 33.7 % (42.0-52.0); Hemoglobin 11.1 gm/dL (13.5-18.0); Mean Cell Volume 117.4 fl (78-100); Mean Corpuscular Hemoglobin 38.7 pg (27-31); Mean Corpuscular Hgb Conc 32.9 g/dl (32-36); Mean Platelet Volume 9.9 fl (8-11.3); NRBC# 0.3 k/mm3 (0-1); Neutrophil # 3.1 K/mm3 (1.3-6.0); Neutrophil % 54.1 % (42-75.0); Platelet Count 217 K/mm3 (150-450); Red Blood Count 2.87 M/mm3 (4.7-6.0); Red Cell Distribution Width 17.4 % (11.5-14.0); White Blood Count 5.8 K/mm3 (4.0-10.5)
[2019-09-03 16:57] LABS: Urine Bilirubin Negative (NEGATIVE); Urine Blood Negative /ul (NEGATIVE); Urine Ketone Negative (NEGATIVE); Urine Nitrite Negative (NEGATIVE); Urine Protein Negative (NEGATIVE); Urine Specific Gravity 1.015 SP.GR. (1.005-1.030); Urine Urobilinogen Normal (NORMAL); Urine pH 6.5 pH (5.0-7.0)
[2019-09-03 17:05] LABS: Prothrombin Time (Patient) 23.7 Seconds (9.1-10.7)
[2019-09-03 17:10] LABS: Albumin * 3.6 gm/dl (3.4-5.0); Anion Gap 10.7 mmol/L (6.8-13.8); Bilirubin, Total 2.9 mg/dL (0.0-1.1); Ca. Corrected For Albumin 9.8 mg/dL (8.4-10.2); Calcium * 9.8 mg/dL (7.9-10.9); Carbon Dioxide 30.4 mmol/L (24-32.6); INR 2.48 INR (0.92-1.08); Magnesium 1.9 mg/dL (1.2-2.8); Partial Thrombolplastin Time 32.2 Seconds (24-32); Potassium 4.1 mmol/L (3.4-4.6); Total Protein 7.3 gm/dL (6.2-8.2); Troponin I 0.079 ng/mL (0.00-0.10)
[2019-09-03 17:21] LABS: Urine Appearance Clear (CLEAR); Urine Bacteria None Seen; Urine Color Yellow; Urine RBC None Seen /hpf (0-5); Urine WBC None Seen /hpf (0-5)
[2019-09-03] MEDS ORDERED: AZITHROMYCIN 250 MG TABLET PO ONE (18:22)
[2019-09-03] MEDS ORDERED: cefTRIAXone SODIUM 1,000 MG/100 ML BAG IV ONE (18:22)
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
[2019-09-03] MEDS ORDERED: ACETAMINOPHEN 325 MG TABLET PO PRN (19:37)
[2019-09-03] MEDS ORDERED: diphenhydrAMINE HCL 50 MG/ML VIAL IV PRN (19:40)
[2019-09-03] MEDS ORDERED: guaiFENesin/DEXTROMETHORPHAN SYRUP PO PRN (19:40)
[2019-09-03] MEDS ORDERED: ACETAMINOPHEN 500 MG TABLET PO PRN (19:41)
[2019-09-03] MEDS ORDERED: WARFARIN SODIUM 1 MG TABLET PO SCH (19:45)
[2019-09-03] MEDS ORDERED: METOPROLOL TARTRATE 25 MG TABLET PO SCH ×2 (20:15→21:00)
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
[2019-09-03] MEDS ORDERED: METOPROLOL TARTRATE 50 MG TABLET ONE (20:31)
[2019-09-03] MEDS: BUMETANIDE 1 MG TABLET PO SCH (20:35)
[2019-09-03] MEDS: FAMOTIDINE 20 MG TABLET PO SCH (20:38)
[2019-09-03] MEDS: POTASSIUM CHLORIDE 20 MEQ TABLET.SA PO SCH (20:38)
[2019-09-03] MEDS: DOXYCYCLINE HYCLATE 100 MG TABLET PO SCH (20:38)
[2019-09-03] MEDS: CHOLECALCIFEROL 5,000 UNIT TABLET PO SCH (20:39)
[2019-09-03] MEDS: BISOPROLOL FUMARATE 5 MG TABLET PO SCH (20:39)
[2019-09-03] MEDS ORDERED: LORATADINE 10 MG TABLET PO SCH (21:00)
[2019-09-04] MEDS: CHOLECALCIFEROL 5,000 UNIT TABLET PO SCH (08:10)
[2019-09-04] MEDS: BUMETANIDE 1 MG TABLET PO SCH (08:11)
[2019-09-04] MEDS: POTASSIUM CHLORIDE 20 MEQ TABLET.SA PO SCH (08:12)
[2019-09-04] MEDS: FAMOTIDINE 20 MG TABLET PO SCH (08:12)
[2019-09-04] MEDS: DOXYCYCLINE HYCLATE 100 MG TABLET PO SCH (08:13)
[2019-09-04] MEDS: BISOPROLOL FUMARATE 5 MG TABLET PO SCH (08:22)
[2019-09-04] MEDS ORDERED: ASPIRIN 81 MG TABLET.DR PO SCH (09:00)
[2019-09-04] MEDS ORDERED: SIMVASTATIN 20 MG TABLET PO SCH ×2 (09:00→21:00)
[2019-09-04] MEDS ORDERED: TAFAMIDIS MEGLUMINE PO SCH (09:00)
[2019-09-04] MEDS ORDERED: AZITHROMYCIN 250 MG TABLET PO SCH (09:00)
--- NOTE | 2019-09-04 09:48 | DS ---
(1) Left lower lobe pneumonia Problem: Ruled-out (2) Chronic systolic heart failure Problem: Chronic (3) Amyloidosis Problem: Chronic (4) Balance problem Problem: Chronic (5) Dizziness Problem: Chronic (6) Atrial fibrillation with RVR Problem: Resolved (7) Bilateral pleural effusion Problem: Acute (8) COPD with acute bronchitis Problem: Acute Date of Discharge:: 09/04/19 Hospital Course: 83-year-old male admitted for suspected left lower lobe pneumonia, bilateral pleural effusions, dizziness, COPD with acute bronchitis was evaluated at bedside and was found to be afebrile and in no acute distress. Patient is showing improvement in his clinical condition, his cough has improved and he has no shortness of breath. Patient's lungs are clear to auscultation and there are no other acute findings on his physical exam this morning. It is my opinion that the patient is at his baseline state of health and only requires oral antibiotics for a few additional days. There has been no recurrence of fever or chills and no adverse events were reported by nursing staff last night. After starting administering a beta-marcella last night his rapid ventricular response resolved and he now has adequately controlled heart rate but atrial fibrillation persists. Therefore decision to discharge patient home with additional days of antibiotics and with instructions to come see me in the internal medicine clinic in 2 weeks for follow-up was made. Patient already has home health with physical therapy and nursing services set up so he would only have to continue the normal routine. Procedures Performed: none Results and Findings: Lab Pending Results 09/03/19 16:42: WBC 5.8, RBC 2.87 L, Hgb 11.1 L, Hct 33.7 L, MCV 117.4 H, MCH 38.7 H, MCHC 32.9, RDW 17.4 H, Plt Count 217, MPV 9.9, Immature Gran % (Auto) 1.70 H, Immature Gran # (Auto) 0.10 H, Neutrophils % 54.1, Lymphocytes % 25.0, Monocytes % 12.9 H, Eosinophils % 4.1 H, Basophils % 2.2 H, Nucleated RBC % 0.3, Neutrophils # 3.1, Lymphocytes # 1.45 L, Monocytes # 0.8, Eosinophils # 0.2, Absolute Basophils 0.1 09/03/19 16:42: PT 23.7 H, INR (Anticoag Therapy) 2.48 H, PTT (George) 32.2 H 09/03/19 16:42: Sodium 137, Plasma Sodium 137, Potassium 4.1, Chloride 100, Carbon Dioxide 30.4, Anion Gap 10.7, BUN 17, Creatinine 1.00, Est GFR (Non-Af Amer) 76, BUN/Creatinine Ratio 17.0, Random Glucose 93, Calcium 9.8, Calcium Adj for Albumin 9.8, Magnesium 1.9, Total Bilirubin 2.9 H, AST 33, ALT 15 L, Alkaline Phosphatase 99, Troponin I 0.079, B-Natriuretic Peptide 1857 H, Total Protein 7.3, Albumin 3.6, Amylase 44, Lipase 195 09/03/19 16:42: Urine Color Yellow, Urine Appearance Clear, Urine pH 6.5, Ur Specific [place] 1.015, Urine Protein Negative, Urine Glucose (UA) Negative, Urine Ketones Negative, Urine Blood Negative, Urine Nitrate Negative, Urine Bilirubin Negative, Urine Urobilinogen Normal, Ur Leukocyte Esterase Negative, Urine RBC None seen, Urine WBC None seen, Ur Epithelial Cells None seen, Urine Bacteria None seen, Urine Culture Comments No culture indicated Discharge Location: Home Disposition: Home Health Service Home Health Agency: [facility] Condition: Stable Face to Face Encounter completed per [facility] Guidelines: No Discharge Activity: Activity as tolerated Discharge Diet: General/regular food Shelter Therapy: Physical Therapy Referrals: Keira Olson MD [Primary Care Provider] - Additional Patient Instructions (free text): Has [facility] on going, please call and fax discharge information. Prescriptions (Any new or edited meds): guaiFENesin/DEXTROMETHORPHAN [Robitussin-Dm] 10 ml PO Q4H PRN #30 syrup PRN Reason: Cough [facility] [place] Azithromycin [Zithromax] 250 mg PO DAILY 5 Days #5 tab Transmission Status: Pending to [place], [place] Complete Home Medications List: Complete Home Medication List: cholecalciferol (vitamin D3) 125 mcg (5,000 unit) tablet 5,000 unit PO DAILY #30 tab 09/30/18 doxycycline hyclate 100 mg tablet 100 mg PO BID 10/24/18 cetirizine 10 mg tablet 10 mg PO HS tab 11/25/18 warfarin 1 mg tablet 1.5 mg PO SUMOTUWEFRSA tab 11/25/18 potassium chloride 10 mEq tablet,extended release 20 meq PO BID tab 12/31/18 acetaminophen 500 mg tablet 500 mg PO Q6H PRN 04/10/19 artificial tears(hypromellose) 0.5 % eye drops 1 drp OP TID PRN 04/10/19 bumetanide 2 mg tablet 6 mg PO DAILY tab 04/10/19 atorvastatin 20 mg tablet 10 mg PO DAILY #45 tab 07/31/19 Aspirin 81 mg PO DAILY 09/03/19 Bisoprolol Fumarate 5 mg PO DAILY 09/03/19 Tafamidis Meglumine [Vyndaqel] 80 mg PO DAILY 09/03/19 Azithromycin [Zithromax] 250 mg PO DAILY 5 Days #5 tab 09/04/19 Warfarin Sodium 1 mg PO TH 09/04/19 guaiFENesin/DEXTROMETHORPHAN [Robitussin-Dm] 10 ml PO Q4H PRN #30 syrup 09/04/19
[2019-09-04 16:36] VITALS: BP 129/62
[2019-09-04] MEDS ORDERED: WARFARIN SODIUM 1 MG TABLET PO SCH (17:00)
[2019-09-04] MEDS ORDERED: METOPROLOL TARTRATE 50 MG TABLET PO SCH (21:00)
[2019-09-05] MEDS ORDERED: WARFARIN SODIUM 1 MG TABLET PO SCH (17:00)
== END 2019-09-04 13:45 | disposition home health service (06) ==
LOC: MS 15:31 → ER 15:31 → MS 19:30
PROVIDERS: ADMIT Family Medicine; ATTEND Family Medicine
CPT/HCPCS: 36415; 70450; 71020; 71046; 80053; 81001; 82150; 83519; 83690; 83735; 83880; 84484; 85025; 85610; 85730; 87040; 93005; 96365; 99285; G0378